=== PATIENT | female | born 1970 ===

== ENCOUNTER 2023-01-03 06:52 | Day surgery (SDC) | payer OTHER ==
[~2023-01-03] VITALS: Ht 165.1 cm; Wt 140.2 kg
[2023-01-03] MEDS ORDERED: TOPI25C (07:13)
[2023-01-03] MEDS ORDERED: DULO60 (07:13)
[2023-01-03 08:37] VITALS: BP 136/97
== END 2023-01-03 08:51 | disposition home or self-care (01) ==
LOC: ORSCSDS 06:52 → ORD 08:00 → ORSCSDS 08:00
PROVIDERS: Internal Medicine Gastroenterology
PROC: 0DBM8ZX Excision of Descending Colon, Via Natural or Artificial Opening Endoscopic, Diagnostic (ICD-10-PCS; principal; 2023-01-03 08:00)
PROC: 0DBH8ZX Excision of Cecum, Via Natural or Artificial Opening Endoscopic, Diagnostic (ICD-10-PCS; principal; 2023-01-03 08:00)
PROC: 0DBL8ZX Excision of Transverse Colon, Via Natural or Artificial Opening Endoscopic, Diagnostic (ICD-10-PCS; principal; 2023-01-03 08:00)
DX: Z12.11 Encounter for screening for malignant neoplasm of colon (principal); D12.0 Benign neoplasm of cecum; D12.3 Benign neoplasm of transverse colon; D12.4 Benign neoplasm of descending colon; K64.8 Other hemorrhoids; K57.30 Diverticulosis of large intestine without perforation or abscess without bleeding; I10 Essential (primary) hypertension; K21.9 Gastro-esophageal reflux disease without esophagitis; E66.9 Obesity, unspecified; Z68.43 Body mass index [BMI] 50.0-59.9, adult; F17.210 Nicotine dependence, cigarettes, uncomplicated; Z79.899 Other long term (current) drug therapy
CPT/HCPCS: 88305; J2704; J7120